=== PATIENT | male | born 1990 | race Caucasian/White ===

== ENCOUNTER 2018-01-31 20:29 | Emergency (ER) | payer SELFPAY ==
[2018-01-31 21:14] VITALS: BP 147/104
[2018-01-31] MEDS ORDERED: ACETAMINOPHEN 325MG TABLET PO ONE (22:15)
== END 2018-01-31 22:38 | disposition home or self-care (01) ==
LOC: ER 22:34
DX: R51 Headache (principal); R03.0 Elevated blood-pressure reading, without diagnosis of hypertension; Z87.891 Personal history of nicotine dependence
CPT/HCPCS: 99282